=== PATIENT | female | born 1985 | race Caucasian/White ===

== ENCOUNTER → 2017-06-26 | Outpatient (CLI) | payer OTHER ==
--- NOTE | 2017-06-26 14:29 | CT ---
EXAMINATION TYPE: CT abdomen pelvis w con DATE OF EXAM: 06/26/2017 HISTORY: Patient complains of RLQ pain and nausea. CT DLP: 524.3mGycm Automated Exposure Control for Dose Reduction was Utilized. CONTRAST: CT scan of the abdomen and pelvis is performed with oral and with IV Contrast, patient injected with 100 mL of Omnipaque 300. COMPARISON: None. FINDINGS: Patient has very little intra-abdominal fat making evaluation suboptimal. LUNG BASES: No significant abnormality is appreciated. LIVER/GB: No significant abnormality is appreciated. PANCREAS: No significant abnormality is seen. SPLEEN: No significant abnormality is seen. ADRENALS: No significant abnormality is seen. KIDNEYS: No significant abnormality is seen. BOWEL: The oral contrast reaches level of the cecum. There is no suspicious small or large bowel dila tation seen. There is low-lying cecum into the right pelvis. Terminal ileum is seen best near coronal image 25, there is fecal material and contrast at this level noted. Small bowel feces sign is consis tent with delayed passage of ingested material 2 colonic level. Appendix is not seen with certainty b ut there is no evidence of inflammatory change at base of cecum to suggest acute appendicitis. UTERUS/ADNEXA: Uterus is anteverted in shape and normal in size. Both ovaries are present and not loulou piciously enlarged. LYMPH NODES: No greater than 1cm abdominal or pelvic lymph nodes are appreciated. OSSEOUS STRUCTURES: No significant abnormality is seen. OTHER: No significant additional abnormality is seen. IMPRESSION: No significant acute finding is seen to account for patient's clinical symptoms. Appendix not seen with certainty but there is no evidence of inflammatory change at base of cecum to suggest acute appendicitis.
== END | disposition home or self-care (01) ==
LOC: RADCTMAIN 12:09
PROVIDERS: ATTEND Family Medicine
DX: R10.31 Right lower quadrant pain (principal)
CPT/HCPCS: 74177; Q9967

== ENCOUNTER → 2017-12-17 | Outpatient (CLI) | payer OTHER ==
--- NOTE | 2017-12-17 22:29 | MR ---
EXAMINATION TYPE: MR brain/cspine wo/w DATE OF EXAM: 12/17/2017 COMPARISON: NONE HISTORY: Vision loss / Cervicalgia CONTRAST: Performed utilizing 7.5 mL intravenous Gadavist gadolinium contrast. TECHNIQUE: Multiplanar, multiecho imaging on a 3.0 Nita magnet is performed through the brain. Stud y is performed within 24 hours of arrival to the hospital. The craniovertebral junction is normal. The pituitary is normal. Diffusion-weighted imaging is performed. No abnormal hyperintensity is present to suggest an acute i ntracranial infarct or acute ischemic change. Signal within the brain appears unremarkable. Ventricles and sulci are appropriate for the patient age. Occipital lobes appear unremarkable palomino radiata are unremarkable. Optic nerves as visualized appea r normal. The orbits within the [id number] appear normal. Optic chiasm is not optimally visualized . Where visualized on the FLAIR images appears unremarkable. No abnormal enhancement is evident following contrast administration. IMPRESSIONS: 1. Unremarkable MRI brain. EXAMINATION TYPE: MR brain/cspine wo/w DATE OF EXAM: 12/17/2017 COMPARISON: NONE HISTORY: Vision loss / Cervicalgia CONTRAST: Performed utilizing 7.5 mL intravenous Gadavist gadolinium contrast. TECHNIQUE: Multiplanar multiecho imaging on a 3.0 Nita magnet is performed through the cervical spin e. FINDINGS: The craniovertebral junction is normal. Vertebral body alignment is normal. C7-T1: No focal disc herniation or significant disc bulge is evident. No spinal canal stenosis or n eural foraminal stenosis is present. C6-7: No focal disc herniation or significant disc bulge is evident. No spinal canal stenosis or marine ral foraminal stenosis is present. C5-6: No focal disc herniation or significant disc bulge is evident. No spinal canal stenosis or marine ral foraminal stenosis is present. C4-5: No focal disc herniation or significant disc bulge is evident. No spinal canal stenosis or marine ral foraminal stenosis is present. C3-4: No focal disc herniation or significant disc bulge is evident. No spinal canal stenosis or marine ral foraminal stenosis is present. C2-3: No focal disc herniation or significant disc bulge is evident. No spinal canal stenosis or marine ral foraminal stenosis is present. IMPRESSIONS: 1. Normal pre and postcontrast MRI cervical spine
== END | disposition home or self-care (01) ==
LOC: RADMRIMAIN 05:54
PROVIDERS: ATTEND Psychiatry & Neurology Neurology
DX: H54.7 Unspecified visual loss (principal); G51.9 Disorder of facial nerve, unspecified; M54.2 Cervicalgia
CPT/HCPCS: 70553; 72156; A9581

== ENCOUNTER 2018-01-20 13:11 | Emergency (ER) | payer OTHER ==
[2018-01-20] MEDS ORDERED: SODIUM CHLORIDE 0.9% 500 ML IV STA (13:29)
[2018-01-20] MEDS ORDERED: PANTOPRAZOLE 40 MG/10 ML VIAL IVP STA (13:29)
[2018-01-20] MEDS ORDERED: ONDANSETRON 4 MG/2 ML VIAL IVP STA (13:29)
[2018-01-20] MEDS ORDERED: KETOROLAC 30 MG/ML 1 ML VIAL IVP STA (13:29)
[2018-01-20] MEDS ORDERED: SODIUM CHLORIDE 0.9% 1,000 ML IV STA (13:29)
[2018-01-20] MEDS ORDERED: RX INFO: IV CONTRAST WAS GIVEN 1 EACH MISC MISCELLANE PRN (13:29)
[2018-01-20] MEDS ORDERED: ACETAMINOPHEN IV (For NPO) 1,000 MG in EMPTY BAG 1 BAG IVPB STA (13:30)
--- NOTE | 2018-01-20 13:31 | ED ---
General Adult HPI - General Chief complaint: Abdominal Pain Stated complaint: POSS APPENDICITIS, SENT BY [id number] [facility] Time Seen by Provider: 01/20/18 13:20 Source: patient, RN notes reviewed, old records reviewed Mode of arrival: ambulatory Limitations: no limitations - History of Present Illness Initial comments: This is a 32-year-old female the ER for evaluation of abdominal pain see. Patient does have history of prior tubal ligation, patient does have prior history of systems drainage and removal. She states she is scheduled for Cardiac Cooperation This Week. Patient States She Started with Fever Chills and Right Lower Quadrant Tenderness Yesterday into Today. She States She Has Had Increasing Right Lower Quadrant Abdominal Pain. No Vaginal Bleeding No Diarrhea. She States She Was Able to Eat Breakfast without Difficulty This Morning, She Does Not Feel like This Is Her Normal Ovarian Cysts, Pain Is Worse Worse with Movement. Worse When She Touches It. She Feels like She Has ER Today but Cannot - Related Data Previous Rx's Medication Instructions Recorded Nitrofurantoin Monohyd/M-Cryst 100 mg PO Q12HR #14 cap 01/20/18 [Macrobid] Allergies Allergy/AdvReac Type Severity Reaction Status Date / Time No Known Allergies Allergy Verified 01/20/18 13:19 Review of Systems ROS Statement: Those systems with pertinent positive or pertinent negative responses have been documented in the HPI. ROS Other: All systems not noted in ROS Statement are negative. Past Medical History Past Medical History: No Reported History History of Any Multi-Drug Resistant Organisms: None Reported Past Surgical History: Tubal Ligation, Uterine Ablation Past Psychological History: No Psychological Hx Reported Smoking Status: Never smoker Past Alcohol Use History: None Reported Past Drug Use History: None Reported General Exam Limitations: no limitations General appearance: alert, in no apparent distress Head exam: Present: atraumatic, normocephalic, normal inspection Eye exam: Present: normal appearance, PERRL, EOMI. Absent: scleral icterus, conjunctival injection, periorbital swelling ENT exam: Present: normal exam, mucous membranes moist Neck exam: Present: normal inspection. Absent: tenderness, meningismus, lymphadenopathy Respiratory exam: Present: normal lung sounds bilaterally. Absent: respiratory distress, wheezes, rales, rhonchi, stridor Cardiovascular Exam: Present: regular rate, normal rhythm, normal heart sounds. Absent: systolic murmur, diastolic murmur, rubs, gallop, clicks GI/Abdominal exam: Present: soft, tenderness (RLQ), normal bowel sounds. Absent : distended, guarding, rebound, rigid Extremities exam: Present: normal inspection, full ROM, normal capillary refill. Absent: tenderness, pedal edema, joint swelling, calf tenderness Back exam: Present: normal inspection Neurological exam: Present: alert, oriented X3, CN II-XII intact Psychiatric exam: Present: normal affect, normal mood Skin exam: Present: warm, dry, intact, normal color. Absent: rash Course Vital Signs 01/20/18 13:17 Temperature 97.8 F Pulse Rate 94 Respiratory 20 Rate Blood Pressure 130/70 O2 Sat by Pulse 99 Oximetry Medical Decision Making - Medical Decision Making 32-year-old female the ER with right-sided abdominal pain, right-sided flank pain. Patient has positive urinary tract infection CT of pelvis is negative, patient is had tubal ligation. Patient will be discharged home with antibiotics for UTI possible pyelonephritis - Lab Data Result diagrams: 01/20/18 13:29 01/20/18 13:29 Lab Results 01/20/18 01/20/18 01/20/18 Range/Units 13:29 13:29 13:29 WBC 6.6 (3.8-10.6) k/uL RBC 4.70 (3.80-5.40) m/uL Hgb 14.3 (11.4-16.0) gm/dL Hct 41.8 (34.0-46.0) % MCV 88.9 (80.0-100.0) fL MCH 30.5 (25.0-35.0) pg MCHC 34.3 (31.0-37.0) g/dL RDW 12.9 (11.5-15.5) % Plt Count 324 (150-450) k/uL Neutrophils % 50 % Lymphocytes % 40 % Monocytes % 6 % Eosinophils % 3 % Basophils % 0 % Neutrophils # 3.3 (1.3-7.7) k/uL Lymphocytes # 2.6 (1.0-4.8) k/uL Monocytes # 0.4 (0-1.0) k/uL Eosinophils # 0.2 (0-0.7) k/uL Basophils # 0.0 (0-0.2) k/uL Sodium 142 (137-145) mmol/L Potassium 4.1 (3.5-5.1) mmol/L Chloride 102 (98-107) mmol/L Carbon Dioxide 25 (22-30) mmol/L Anion Gap 15 mmol/L BUN 9 (7-17) mg/dL Creatinine 0.70 (0.52-1.04) mg/dL Est GFR (CKD-EPI)AfAm >90 (>60 ml/min/1.73 sqM) Est GFR (CKD-EPI)NonAf >90 (>60 ml/min/1.73 sqM) Glucose 89 (74-99) mg/dL Calcium 9.5 (8.4-10.2) mg/dL Total Bilirubin 0.6 (0.2-1.3) mg/dL AST 20 (14-36) U/L ALT 20 (9-52) U/L Alkaline Phosphatase 58 (38-126) U/L Total Protein 7.4 (6.3-8.2) g/dL Albumin 4.6 (3.5-5.0) g/dL Amylase 70 (30-110) U/L Lipase 136 (23-300) U/L Urine Color Light Yellow Urine Appearance Clear (Clear) Urine pH 7.0 (5.0-8.0) Ur Specific [place] 1.003 (1.001-1.035) Urine Protein Negative (Negative) Urine Glucose (UA) Negative (Negative) Urine Ketones Negative (Negative) Urine Blood Negative (Negative) Urine Nitrite Negative (Negative) Urine Bilirubin Negative (Negative) Urine Urobilinogen <2.0 (<2.0) mg/dL Ur Leukocyte Esterase Moderate H (Negative) Urine RBC <1 (0-5) /hpf Urine WBC 57 H (0-5) /hpf Ur Squamous Epith Cells 1 (0-4) /hpf Urine Bacteria Rare H (None) /hpf Disposition Clinical Impression: UTI (urinary tract infection) Disposition: HOME SELF-CARE Condition: Good Instructions: Urinary Tract Infection in Women (ED) Prescriptions: Nitrofurantoin Monohyd/M-Cryst [Macrobid] 100 mg PO Q12HR #14 cap Is patient prescribed a controlled substance at d/c from ED?: No Referrals: Liz Aden DO [Primary Care Provider] - 1-2 days
[2018-01-20 13:42] LABS: Basophils % (A) 0 %; Eosinophils # (A) 0.2 k/uL (0-0.7); Eosinophils % (A) 3 %; HCT 41.8 % (34.0-46.0); HGB 14.3 gm/dL (11.4-16.0); Lymphocytes # (A) 2.6 k/uL (1.0-4.8); Lymphocytes % (A) 40 %; MCH 30.5 pg (25.0-35.0); MCHC 34.3 g/dL (31.0-37.0); MCV 88.9 fL (80.0-100.0); Mean Platelet Volume 7.7; Monocytes # (A) 0.4 k/uL (0-1.0); Monocytes % (A) 6 %; Neutrophils # (A) 3.3 k/uL (1.3-7.7); Neutrophils % (A) 50 %; Platelet Count 324 k/uL (150-450); RDW 12.9 % (11.5-15.5); WBC 6.6 k/uL (3.8-10.6)
[2018-01-20 13:45] LABS: Appearance,Urine Clear (Clear); Bacteria,Urine Rare /hpf; Bilirubin,Urine Negative (Negative); Blood,Urine Negative (Negative); Color,Urine Light Yellow; Glucose,Urine (UA) Negative (Negative); Ketones,Urine Negative (Negative); Leukocyte Esterase,Urine Moderate (Negative); Nitrite,Urine Negative (Negative); Protein,Urine Negative (Negative); RBC,Urine <1 /hpf (0-5); Specific Gravity,Urine 1.003 (1.001-1.035); Squamous Epithelial Cell,Urine 1 /hpf (0-4); Urobilinogen,Urine <2.0 mg/dL (<2.0); WBC,Urine 57 /hpf (0-5)
[2018-01-20 13:52] LABS: ALT 20 U/L (9-52); AST 20 U/L (14-36); Albumin 4.6 g/dL (3.5-5.0); Alkaline Phosphatase 58 U/L (38-126); Amylase 70 U/L (30-110); Anion Gap 15 mmol/L; Blood Urea Nitrogen 9 mg/dL (7-17); Calcium 9.5 mg/dL (8.4-10.2); Carbon Dioxide 25 mmol/L (22-30); Chloride 102 mmol/L (98-107); Glucose 89 mg/dL (74-99); Lipase 136 U/L (23-300); Potassium 4.1 mmol/L (3.5-5.1); Sodium 142 mmol/L (137-145); Total Bilirubin 0.6 mg/dL (0.2-1.3); Total Protein 7.4 g/dL (6.3-8.2)
[2018-01-20] MEDS ORDERED: cefTRIAXone 2,000 MG in SODIUM CHLORIDE 0.9% 100 ML IVPB STA (14:58)
--- NOTE | 2018-01-20 14:58 | CT ---
EXAMINATION TYPE: CT abdomen pelvis w con DATE OF EXAM: 01/20/2018 COMPARISON: 06/26/2017 INDICATION: RLQ pain, back pain DLP: 555.8 mGycm, Automated exposure control for dose reduction was used. CONTRAST: 100 mL of Isovue 300. Study performed without Oral Contrast TECHNIQUE: Axial images were obtained from above the diaphragm to the pubic rami in the axial plane a t 5 mm thick sections. Reconstructed images are reviewed on the computer in the coronal plane. FINDINGS: Limited CT sections are obtained the lung bases. The lung bases are clear. CT ABDOMEN: Liver: Normal Spleen: Normal Pancreas: Normal Adrenal glands: The adrenal glands are normal. Gallbladder: Normal Kidneys: No masses are evident. No hydronephrosis is present. No cysts are present. Delayed images were obtained through the kidneys, which remain unremarkable. Aorta: Normal Inferior vena cava: Normal. CT PELVIS: Loops of bowel within the abdomen and pelvis are normal. Studies performed without oral contrast limiting the evaluation. Appendix: Not clearly identified. No suspicious tubular structures or inflammatory changes are eviden t. Urinary bladder: Normal. Genitourinary structures: Uterus is unremarkable. Small follicles are likely present in bilateral ova elizabeth. Osseous structures: No suspicious lytic or sclerotic lesions. IMPRESSIONS: 1. Normal CT abdomen pelvis. Clinical management right lower quadrant pain is recommended.
[2018-01-20] MEDS ORDERED: cefTRIAXone IN SWFI 2,000 MG/20 ML SYRINGE IVP STA (15:00)
[2018-01-20 15:04] VITALS: BP 99/61; PULSE 65; RESP 18; TEMP 97.7
== END 2018-01-20 15:32 | disposition home or self-care (01) ==
LOC: EC 13:11
DX: N39.0 Urinary tract infection, site not specified (principal); Z98.51 Tubal ligation status
CPT/HCPCS: 36415; 80053; 82150; 83690; 85025; 81001; 87086; 74177; 99284; 96374; 96375 ×4; 96361; J2405; J0696; J1885; J0131; C9113; Q9967

== ENCOUNTER → 2018-03-13 | Outpatient (CLI) | payer OTHER ==
[2018-03-13 15:09] LABS: HCT 42.8 % (34.0-46.0); HGB 14.5 gm/dL (11.4-16.0); MCH 31.3 pg (25.0-35.0); MCHC 33.9 g/dL (31.0-37.0); MCV 92.3 fL (80.0-100.0); Mean Platelet Volume 7.3; Platelet Count 289 k/uL (150-450); RBC 4.64 m/uL (3.80-5.40); RDW 13.5 % (11.5-15.5); WBC 5.5 k/uL (3.8-10.6)
[2018-03-13 15:24] LABS: ALT 27 U/L (9-52); AST 16 U/L (14-36); Albumin 4.8 g/dL (3.5-5.0); Alkaline Phosphatase 49 U/L (38-126); Anion Gap 12 mmol/L; Blood Urea Nitrogen 5 mg/dL (7-17); Calcium 9.5 mg/dL (8.4-10.2); Carbon Dioxide 23 mmol/L (22-30); Chloride 104 mmol/L (98-107); Glucose 91 mg/dL (74-99); Potassium 4.2 mmol/L (3.5-5.1); Sodium 139 mmol/L (137-145); Total Bilirubin 0.4 mg/dL (0.2-1.3); Total Protein 7.4 g/dL (6.3-8.2)
[2018-03-13 15:42] LABS: T4, Free (Free Thyroxine) 1.07 ng/dL (0.78-2.19)
[2018-03-13 19:11] LABS: Iron Saturation 23.53 (12.00-45.00)
== END ==
LOC: LABWHC1 14:38
PROVIDERS: ATTEND Physician Assistant
DX: G62.9 Polyneuropathy, unspecified (principal); G25.81 Restless legs syndrome
CPT/HCPCS: 36415; 80053; 82607; 82728; 83540; 83550; 84439; 84443; 84466; 84481; 85027